=== PATIENT | male | born 1935 | race Caucasian/White ===

== ENCOUNTER 2023-10-19 12:52 | Emergency (ER) | payer MEDICARE, SELFPAY ==
[2023-10-19 12:58] VITALS: BP 127/71
--- NOTE | 2023-10-19 14:59 | ED.GENMED ---
History of Present Illness
<Odette Calhoun PA-C - Last Filed: 10/19/23 19:57>
General
Chief Complaint: Fall
Source: patient, spouse and family
Exam Limitations: none
Time Seen by Provider: 10/19/23 14:57
Nursing documentation reviewed up to this point in time: agreed with
Travel History
Have you had any contact with someone who has COVID-19?: No
Do you have any symptoms of coronavirus? Fever > 100 degrees, chills, cough, shortness of breath, sore throat, loss of taste or smell, muscle aches, or headache?: No
History of Present Illness
History of Present Illness:
This is an 87-year-old male with a past medical history of aortic dissection/dissection, stroke, hypertension who is presenting to the emergency department today with left rib pain unless back pain following a fall that occurred 2 days ago. He
states that Sunday morning at 4 AM, he was walking to the bathroom when he tripped over something on the floor and fell onto the bathtub siding. He states that his helped him up but he was able to walk after this with no problems. He states
that he did not hit his head. He states that prior to the fall, he did not have any presyncopal symptoms, lightheadedness, dizziness,, chest pain, shortness of breath. He states that he has chronic back pain however the back pains are getting
progressively worse and started to have left-sided rib pain. He denies any current nausea or vomiting, headache, shortness of breath, abdominal pain, chest pain. He denies any neck pain. Patient and family states that back in 2008 he had a aortic
dissection which was subsequently repaired. They are currently monitoring his aortic aneurysm and he is not had any operations since then.
Past History
<Odette Calhoun PA-C - Last Filed: 10/19/23 19:57>
Past History
ED Past Medical History: CVA (with Left sided weakness,), HTN, Hypothyroidism, Other (BPH , Diverticulitis,) and Other (History of dissection of the thoracoabdominal aorta )
ED Past Surgical History: Appendectomy, Cholecystectomy and Other (Aortic dissection with repair,)
Social History
Tobacco: Non-smoker
Alcohol: None
Drug: None
Personal:
Living: with family
Family History
Family History: Negative Diabetes, Hypertension, Early CAD, Asthma or Cancer
Review of Systems
<Odette Calhoun PA-C - Last Filed: 10/19/23 19:57>
Review of Systems
All Other Systems: ROS reviewed and negative except as documented in HPI and ROS
Phy Exam
<Odette Calhoun PA-C - Last Filed: 10/19/23 19:57>
Physical Exam
Physical Exam:
General: Patient is well-appearing and in no acute distress
Skin: There is a linear area of ecchymosis overlying the lower left external chest wall. No other rashes or lesions.
Cardiac: Regular rate and rhythm, no murmurs
Pulm: Normal respiratory effort, no wheezes rales or rhonchi.
Abdomen: Abdomen is distended, there are no areas of ecchymosis. There is no tenderness palpation.
Musculoskeletal: Patient has full range of motion of bilateral upper extremities. He does have a lot of pain in the left lower side of his back side of his chest palpation. He also has tenderness palpation to midline thoracic and lumbar spine.
Patient seen moving cervical spine spontaneously. No tenderness palpation of the cervical spine.
Course
<Odette Calhoun PA-C - Last Filed: 10/19/23 19:57>
Orders/Labs/Results
Orders:
Orders
10/19/23 13:03
Ribs, Left 3 View W/PA Chest CR [CR Ribs-left 3 Vw W/pa Chest] Urgent
Comment:
Reason For Exam: injury
10/19/23 15:12
Acetaminophen [Tylenol] 650 mg PO NOW STA
10/19/23 16:07
Rx Incentive Spirometry [RESP] Urgent
Frequency: q1h while awake
Vital Signs
Initial and Last Documented VS:
Initial Vital Signs
Temp Pulse Resp BP Pulse Ox
97.8 F 65 16 127/71 97
10/19/23 12:58 10/19/23 12:58 10/19/23 12:58 10/19/23 12:58 10/19/23 12:58
Last Documented Vital Signs
Temp Pulse Resp BP Pulse Ox
97.8 F 65 16 127/71 97
10/19/23 12:58 10/19/23 12:58 10/19/23 12:58 10/19/23 12:58 10/19/23 12:58
<Alejandro Santos, DO - Last Filed: 10/19/23 16:03>
Orders/Labs/Results
Orders:
Orders
10/19/23 13:03
Ribs, Left 3 View W/PA Chest CR [CR Ribs-left 3 Vw W/pa Chest] Urgent
Comment:
Reason For Exam: injury
10/19/23 15:12
Acetaminophen [Tylenol] 650 mg PO NOW STA
10/19/23 16:07
Rx Incentive Spirometry [RESP] Urgent
Frequency: q1h while awake
Vital Signs
Initial and Last Documented VS:
Initial Vital Signs
Temp Pulse Resp BP Pulse Ox
97.8 F 65 16 127/71 97
10/19/23 12:58 10/19/23 12:58 10/19/23 12:58 10/19/23 12:58 10/19/23 12:58
Last Documented Vital Signs
Temp Pulse Resp BP Pulse Ox
97.8 F 65 16 127/71 97
10/19/23 12:58 10/19/23 12:58 10/19/23 12:58 10/19/23 12:58 10/19/23 12:58
<Odette Calhoun PA-C - Last Filed: 10/19/23 19:57>
MDM/Problems Addressed
Differential Diagnosis Includes:
Differentials include rib fracture, musculoskeletal sprain/strain, pulmonary contusion, pneumothorax, hemothorax, liver laceration, splenic laceration
MDM/Problems Addressed:
left sided rib pain
back pain
Chronic conditions affecting care: HTN, Neurological disorder (previous CVA ) and Other (aotic dissection)
Acute Exacerbation and/or Progression of Chronic Illness:
n/a
<HAKAN Ca Last Filed: 10/19/23 19:57>
*Pulse Oximetry
Patient hypoxic: no
*Critical Care Note
Total Time (30-74mins, 75-104mins- exclusive of procedures): Not Applicable
Data Reviewed
Review of Other/Old Records Reveals: Records (Reviewed discharge summary from hospitalization here for aortic dissection in 2008) and Operative Reports
Source: patient and family
Prescriptions/Medications Considered But Not Given:
I
Further Testing Considered But Not Given:
Considered CT scan however
<Odette Calhoun PA-C - Last Filed: 10/19/23 19:57>
Patient Management
Escalation/DeEscalation of care consider admission/obs:
This is an 87-year-old male with a past medical history of aortic dissection, hypertension who presented emergency department today with left-sided rib pain following fall that occurred 2 days ago. His x-ray of his ribs revealed a left eighth rib
fracture. We debated obtaining a CT of the chest given his history of aortic aneurysm and blunt trauma, however this injury occurred 2 days ago and patient currently has no chest pain, shortness of breath, and is hemodynamically stable. We gave
patient 650 of Tylenol patient reports that this significantly helped with pain. We will discharge him, and we advised him to return to the emergency department should he experience shortness of breath, or chest pain.
<Odette Calhoun PA-C - Last Filed: 10/19/23 19:57>
Update Note
Update Note:
3:00 pm-- Initially evaluated patient
4:15 pm-- Upon revaluation,
ED Attending Note
<Odette Calhoun PA-C - Last Filed: 10/19/23 19:57>
-
Portions of this chart may have been created with voice recognition software.� Occasional wrong word or��sound alike� substitutions may have occurred due to the inherent limitations of voice recognition software.
<Alejandro Santos DO - Last Filed: 10/19/23 16:03>
ED Attending Note
Patient seen and examined by attending physician: Yes
I performed the substantive portion of visit, reviewed & personally made and approve the management plan that is documented in note by myself or CHRISTIANO.: Yes
ED Attending Note:
Seen with PA examined independent of the fall few days ago left lateral rib pain has a rib fracture no pneumothorax has renal insufficiency after a thoracic dissection repair, states this pain is entirely different than that, pain is reproducible on
his lateral wall he has a him x-ray, history at this point I do not believe supports thoracic dissection 3 days after a fall on an anticoagulated patient with fairly mild pain
Also he has renal insufficiency, CT with IV contrast eventually could worsen that, shared decision making with family were in agreement
Discharge Plan
Departure
Patient Disposition: Home (Routine Discharge)
Date of Disposition: 10/19/23
Time of Disposition: 16:15
Patient with high blood pressure during this ER visit?: Yes
Condition: Good
Discharge Problem:
Fall, Left rib fracture
Instructions: How to Use an Incentive Spirometer, Rib Fracture (DC), Fall Prevention for Older Adults
Prescriptions:
New
oxycodone-acetaminophen [Percocet] 5-325 mg tablet
1 tab PO Q6HPRN PRN (Reason: pain) Qty: 10 0RF
No Action
aspirin 81 MG tablet,delayed release (DR/EC)
81 mg PO DAILY
sodium bicarbonate 325 MG tablet
325 mg PO BID
tramadol 50 MG tablet
1 - 2 tab PO Q6HPRN PRN (Reason: pain)
levothyroxine 150 MCG tablet
150 mcg PO DAILY AT 0700
metoprolol tartrate 50 MG tablet
25 mg PO BID
Vitamin D 1 CAP Capsule
1 cap PO DAILY
Referrals:
Fortino Guevara, DO [Family Provider] -
Activity Restrictions/Additional Instructions:
For Tylenol, you can take 650 mg (2 standard tablets) every 4-6 hours as needed for pain. Please do not exceed 4 g/day.
We have sent Percocet to your pharmacy should you have breakthrough pain. Please take the provided slip to her pharmacy to have this medication filled should you need it. If you choose to start this medication, please stop your Tylenol. You can
take this medication every 6 hours as needed for pain.
PLEASE RETURN TO THE ER SHOULD YOU EXPERIENCE INCREASING SHORTNESS OF BREATH, ACUTE WORSENING OR YOUR SYMPTOMS, or CHEST PAIN.
Please follow up with your primary care provider.
Interventions
Interventions:
*General Assessment Last Done: 10/19/23 16:54
*Nursing Disposition Last Done: 10/19/23 16:54
ED-Musculoskeletal Assessment Last Done: 10/19/23 15:03
Discharge Date and Time
Discharge Date/Time: 10/19/23 16:55
[2023-10-19] MEDS: TYLENOL 650 MG PO (15:36)
== END 2023-10-19 16:55 | disposition home or self-care (01) ==
LOC: EMR 12:52
PROVIDERS: EMERGENCY PHYSICIAN Emergency Medicine; FAMILY PHYSICIAN Family Medicine
DX: S22.32XA Fracture of one rib, left side, initial encounter for closed fracture (principal); W01.198A Fall on same level from slipping, tripping and stumbling with subsequent striking against other object, initial encounter; Y93.89 Activity, other specified; Y92.002 Bathroom of unspecified non-institutional (private) residence as the place of occurrence of the external cause; Y93.01 Activity, walking, marching and hiking; I69.954 Hemiplegia and hemiparesis following unspecified cerebrovascular disease affecting left non-dominant side
CPT/HCPCS: 99283; 71101

== ENCOUNTER 2024-01-21 12:41 | Outpatient (RCR) | payer MEDICARE, SELFPAY ==
[2024-01-14 13:14] VITALS: BP 124/69
[2024-01-14] MEDS: FERAHEME 117 MG IV (13:31)
[2024-01-14 14:01] VITALS: BP 121/68
[2024-01-21 13:00] VITALS: BP 119/68
[2024-01-21] MEDS: FERAHEME 117 MG IV (13:25)
[2024-01-21 14:00] VITALS: BP 122/60
[2024-01-21 14:25] VITALS: BP 116/64
== END 2024-01-22 11:10 | disposition home or self-care (01) ==
LOC: OID 12:41
PROVIDERS: ATTENDING PHYSICIAN Specialist; FAMILY PHYSICIAN Family Medicine
DX: D64.9 Anemia, unspecified (principal); N18.32 Chronic kidney disease, stage 3b (principal); N26.9 Renal sclerosis, unspecified; E87.22 Chronic metabolic acidosis; N26.1 Atrophy of kidney (terminal)
CPT/HCPCS: 36415; 96365; Q0138